=== PATIENT | female | born 1990 | race African-American/Black ===

== ENCOUNTER 2017-06-05 09:32 | Emergency (ER) | payer BC ==
[~2017-06-05] VITALS: Ht 160 cm; Wt 66.7 kg
[2017-06-05 09:35] VITALS: BP 132/77
--- NOTE | 2017-06-05 09:35 | NUR ---
AAOX3, CAME TO ER C/O LOWER ABDOMINAL PAIN RADIATES TO LOWER BACK SINCE THIS MORNING. SKIN IS WARM AND DRY. RESP IS EVEN AND UNLABORED WITH NAD NOTED. DR TSANG AT BS FOR EVAL.
--- NOTE | 2017-06-05 09:44 | NUR ---
URINE SAMPLE COLLECTED SENT TO LAB
== END 2017-06-05 10:17 | disposition home or self-care (01) ==
LOC: ER 09:34
DX: K59.00 Constipation, unspecified (principal); Z51.5 Encounter for palliative care
CPT/HCPCS: 84703; 99282; A4606; Z7610